=== PATIENT | male | born 1985 | race American Indian/Alaskan Native ===

== ENCOUNTER 2020-07-28 15:34 | Emergency (ER) | payer MEDICAID ==
[2020-07-28 16:06] VITALS: BP 130/79
== END 2020-07-28 20:09 | disposition left against medical advice (07) ==
LOC: ED 15:34
DX: R61 Generalized hyperhidrosis (principal); Z53.21 Procedure and treatment not carried out due to patient leaving prior to being seen by health care provider

== ENCOUNTER 2020-07-29 02:49 | Emergency (ER) | payer MEDICAID ==
[2020-07-29 03:10] VITALS: BP 130/78
--- NOTE | 2020-07-29 03:58 | Emergency Department Report ---
Chief Complaint: Urogenital-Male Stated Complaint: EXCESSIVE SWEATING - HPI History of Present Illness: 34-year-old -[place] male presents to the emergency room complaining of excessive sweating in his groin for several months. Patient states he seen his primary care provider in [place] had blood work and nothing has been diagnosed. Patient comes here wanting to be evaluated for this. Patient denies any penile discharge no painful urination no pain at all. - Exam Vital Signs: Vital Signs 07/29/20 03:01 Temperature 98.0 F Pulse Rate 73 Respiratory 18 Rate Blood Pressure 130/78 O2 Sat by Pulse 100 Oximetry Physical Exam: Gen: alert oriented NAD Cardic: regular rate a Resp: Noneffortless breathing no accessory muscles use Mini neuro: strengh 4/5 all extrimities, Alert and oriented time 3 Crainal nerve II-IIX intact MSE screening note: Focused history and physical exam performed. Due to findings the following was ordered: 34-year-old -[place] male presents to the emergency room complaining of excessive sweating in his groin for several months. Patient states he seen his primary care provider in [place] had blood work and nothing has been diagnosed. Patient comes here wanting to be evaluated for this. Patient denies any penile discharge no painful urination no pain at all. Patient is to follow-up with a primary care provider. ED Disposition for MSE Disposition: - MED SCREENING EXAM-LEFT Is pt being admited?: No Does the pt Need Aspirin: No Condition: Stable Additional Instructions: Follow-up with a primary care provider. Referrals: BYRON JON MD [Primary Care Provider] - 3-5 Days POLLY PRICE MD [Staff Physician] - 3-5 Days
== END 2020-07-29 03:55 | disposition left against medical advice (07) ==
LOC: ED 02:49
DX: R61 Generalized hyperhidrosis (principal); Z53.21 Procedure and treatment not carried out due to patient leaving prior to being seen by health care provider

== ENCOUNTER 2020-12-28 11:23 | Emergency (ER) | payer MEDICAID ==
[2020-12-28 12:54] VITALS: BP 132/86
== END 2020-12-28 14:50 | disposition left against medical advice (07) ==
LOC: ED 11:23
DX: S19.9XXA Unspecified injury of neck, initial encounter (principal); Z53.21 Procedure and treatment not carried out due to patient leaving prior to being seen by health care provider; X58.XXXA Exposure to other specified factors, initial encounter; Y93.89 Activity, other specified; Y92.89 Other specified places as the place of occurrence of the external cause; Y99.8 Other external cause status